=== PATIENT | female | born 1945 | race Caucasian/White ===

== ENCOUNTER 2016-08-17 09:27 | Inpatient (IN) ==
--- NOTE | 2016-08-16 21:26 | Discharge Summary ---
<Heavenly Marrufo - Last Filed: 08/17/16 13:53> - Discharge Diagnosis (1) Arthritis of knee, right Priority: Primary Status: Acute - Discharge Medications Home Medications: Aspirin Enteric Coated [Aspirin EC] 325 mg PO DAILY #21 tablet. 08/16/16 [Rx] OxyCODONE Immed Rel [Roxicodone 5 MG] 5 - 10 mg PO Q6HR PRN #40 tablet 08/16/16 [Rx] Acetaminophen [Tylenol] 650 mg PO DAILY 08/17/16 [History] Metformin [Glucophage] 500 mg PO DAILY 08/17/16 [History] Omeprazole 20 mg PO DAILY 08/17/16 [History] Allergies/Adverse Reactions: Allergies Penicillins [PCN] Allergy (Mild, Verified 08/17/16 10:53) Hives Primary care physician: Elyssa Downing CNP - Patient Status Disposition: Transfer Inpatient Rehab Fac Condition: Good - Discharge Instructions Follow Up With: Durga Murcia MD [Partnered Physician] - 09/15/16 8:50 am Heavenly Marrufo PAC [Physician Mercantile Reporter] - 08/27/16 9:45 am Elyssa Downing CNP [Primary Care Provider] - Additional Instructions: Discharge Instructions: Total Knee Replacement Please call [facility] ([phone]), your Primary Care Physician, or report to the Emergency Room if you have any of the following symptoms: Nausea, vomiting, fever greater that 101.5, swelling, chest pain, shortness of breath, increased pain/redness/drainage/odor for your incision site, numbness/ tingling, or any other concerning symptoms. ACTIVITY:Weight-bearing as tolerated. You may progress off support (cruthches or walker) as tolerated. MEDICATIONS: Upon discharge resume your home medications. Take all the medications as prescribed. Take a stool softener if taking narcotic pain medications. Stool softeners are only effective if you drink enough fluids. Drink 6-8 glass of water or fluids a day, unless this is not allowed for another health problem. Despite using stool softeners, if you haven't had a bowel movement in 3 days, please switch to a gentle laxative. Gentle laxatives are sold over the counter. You should have a bowel movement within 24 hours, if not call the office. You will be discharged from the hospital with a prescription for pain medication. You are encouraged to decrease the use of narcotic pain medication as tolerated. Should you require a refill, please call the office. [facility] prescribes narcotic pain medication for only 4-6 weeks after surgery. If you require pain medication beyond this time periord, you may be referred to your Primary Care Physician or to the Pain Clinic for further evaluation. Plan ahead for refills on pain medication as many narcotics either need to be picked up at the office or mailed. It is best to call 48-72 hours in advance of needing a prescription refill so you don't run out of medication. To help control the post-operative pain, you may take NSAIDs (Aleve,Advil, Motrin, ibuprofen, naprosyn) or Tylenol as prescribed on the bottle in addition to the pain medication. ANTICOAGULATION (blood thinners): Continue your Aspirin, Lovenox or Coumadin as prescribed to help prevent a blood clot in the leg or in the lungs. As long as your incision remains dry and you tolerate the NSAIDs (Aleve, Advil, Motrin, ibuprofen, naprosyn), it is OK to use the NSAIDS while you are taking your anticoagulation medication. Should your incision start to drain, stop the NSAID and contact our office. Common symptoms of blood clot in the legs include: localized pain, swelling, calf tenderness, redness or discoloration of the skin. Blood clot in the lung symptoms include: shortness of breath, rapid pulse, sweating, and chest pain that worsens with deep breathing, coughing up blood, lightheadedness, feelings of anxiety. If you experience any of these symptoms notify your physician immediately, go to the emergency room, or if having trouble breathing, call 911. WOUND CARE: Leave the dressing on for 7 days. You may change the dressing if it becomes saturated greater than 50%. You can shower but not a tub bath or submerge your incision in water. Wash your hands with antibacterial soap, rinse and dry prior to any wound care. If you have sid the visiting nurse or rehab facility can remove the stapes 10-14 days [address] surgery [address] steri- strips across the wound. Leave the steri-strips in place until they fall off on their won. You may let water from the shower run on top of the steri-stirips. If you do not have a visiting nurse or rehab facility, you will need to return to the office at 10-14 days for the sid to be removed. FOLLOW-UP: Please follow up with your surgeon in the orthopedic clinic in 4 weeks from the day of surgery. If you have sid that need to be removed, you will need to come back to the office in 10-14 days from the day of surgery. - Hospital Course Hospital course: Ms. Johnson is a 70 year old female - Time Spent with Patient Total time spent providing and/or coordinating discharge services: <Durga Murcia - Last Filed: 08/20/16 08:20> Date of Encounter: 08/20/16 Time of Encounter: 08:20 - Discharge Diagnosis (1) Arthritis of knee, right Priority: Primary Status: Acute Primary care physician: Elyssa Downing CNP - Patient Status Functional capacity at discharge: uses cane/walker Overall status at discharge: patient is progressing back to baseline - Hospital Course Hospital course: Ms. Johnson is a 70 year old female The patient had an uneventful postoperative course. They received antibiotics and physical therapy and were discharged in stable condition. There will follow -up in the office in 2 weeks. Aspirin DVT prophylaxis - Time Spent with Patient Total time spent providing and/or coordinating discharge services:
[2016-08-17] MEDS ORDERED: Clindamycin 900 MG/50 ML 900 MG/50 ML IV.SOLN IVPB ONE (09:46)
--- NOTE | 2016-08-17 09:58 | History & Physical Report ---
Date of Encounter: 08/17/16 Time of Encounter: 09:58 24 Hour HP Update - Instructions Instructions: If the History and Physical is less than 30 days old and was completed prior to A.M. admission and or procedure and has NOT been updated on calendar day of procedure please complete this update prior to performing procedure. - Update Patient reports changes in Medical Condition: No Changes in assessment/condition: No Changes in Medication: No Preop tests/diagnostics Reviewed: Yes Surgery Remains Indicated: Yes Consent for Planned Operative Procedure(s) Verified: Yes - Pre-Operative Checklist Preoperative Checklist Indicated: No Prophylactic Antibiotic Ordered: Yes Is VTE Prophylaxis Indicated?: Yes
[2016-08-17] MEDS ORDERED: Ringers Solution, Lactated 1,000 ML IVC SCH ×2 (10:00→12:15)
[2016-08-17] MEDS ORDERED: Acetaminophen 325 MG TABLET PO ONE (10:14)
--- NOTE | 2016-08-17 10:31 | Anesthesia Evaluation PreOp ---
Date of Encounter: 08/17/16 Time of Encounter: 10:29 - Past History Planned Operation: r tka Cardiac History: Denies any Significant Hx Pulmonary History: Former smoker (8 years ago) OUTDOOR FITNESS TRAINER History: Denies Any Significant HX Other Medical History: Renal (stones), Diabetes Type II, GERD (controlled) Anesthesia History: No Prior Anesthetic Complications, Past Anesthesia (elbow, l tka, hysterect, cholecyst) Alcohol Use: occasionally Drug use: none Medications and Allergies Aspirin Enteric Coated [Aspirin EC] 325 mg PO DAILY #21 tablet. 08/16/16 [Rx] OxyCODONE Immed Rel [Roxicodone 5 MG] 5 - 10 mg PO Q6HR PRN #40 tablet 08/16/16 [Rx] Allergies Penicillins [PCN] Allergy (Mild, Verified 08/17/16 09:46) Hives - Meds/Allergy Pre-op Review Medications Reviewed: Yes Allergies Reviewed: Yes Beta Blockers on Current Med List: No Anesthesia Results - Labs Laboratory Tests 08/03/16 08/03/16 08/03/16 12:53 12:53 12:53 Hgb Hct Plt Count PT 12.0 INR 1.1 APTT 32.3 Sodium 140 Potassium 4.0 Creatinine 0.73 Hemoglobin A1c 6.2 H 08/03/16 12:53 Hgb 13.7 Hct 43.0 Plt Count 305 PT INR APTT Sodium Potassium Creatinine Hemoglobin A1c - Imaging EKG: report reviewed (sr) Anesthesia Exam O2 Sat Height 1.6 m Height 1.6 m Height 1.6 m Weight 107.955 kg Weight 107.955 kg Weight 107.955 kg O2 Sat by Pulse Oximetry 95 O2 Sat by Pulse Oximetry 95 Vital Signs Temp Pulse Resp BP Pulse Ox 98.4 F 87 18 138/75 95 08/17/16 09:49 08/17/16 09:49 08/17/16 09:49 08/17/16 09:49 08/17/16 09:49 Blood glucose: 121 Height: 1.6 Weight: 108 NPO (# of Hours): >8 - HEENT Pupil (Motor): Pupils equal, EOMI Mallampati: I Teeth: Poor dentition Oral Opening: Greater than 3 - OUTDOOR FITNESS TRAINER LOC: Oriented OUTDOOR FITNESS TRAINER Motor: Normal RUE, Normal LUE, Normal RLE, Normal LLE, Normal Face OUTDOOR FITNESS TRAINER Sensory: Normal: RUE, LUE, RLE, LLE, Face - Cardiac Rhythm: Regular Murmur: None - Pulmonary Breath Sounds: bilateral Clear Respiratory Effort: Symmetrical Anesthesia Assess/Plan ASA Score: 3 (dm, mo) Modified [place] Scale for Level of Consciousness: Cooperative, oriented, and tranquil Anesthetic Plan: General, Regional Monitoring Plan: Standard Monitors Recovery Plan: PACU
[2016-08-17] MEDS ORDERED: *HR* Magnesium Sulfate 2 GM/50 ML PIGGYBACK IVPB ONE (10:39)
[2016-08-17] MEDS ORDERED: CloNIDine Patch 0.1 MG PATCH (WEEKLY) TD SCH (10:45)
[2016-08-17] MEDS ORDERED: Lidocaine -MPF 2% 2 ML VIAL ONE (10:53)
[2016-08-17] MEDS ORDERED: *HR* FentaNYL (PF) 100 MCG/2 ML VIAL ONE (10:53)
[2016-08-17] MEDS ORDERED: *HR* Midazolam HCl 2 MG/2 ML VIAL ONE (10:54)
[2016-08-17] MEDS ORDERED: *HR* Propofol 200 MG/20 ML VIAL IVP ONE (10:54)
[2016-08-17] MEDS ORDERED: Dexamethasone 4 MG/ML VIAL ONE (10:55)
[2016-08-17] MEDS ORDERED: Tetracaine/PF 20 MG/2 ML AMPUL SPINA ONE (11:26)
[2016-08-17] MEDS ORDERED: Bupivacaine/EPI 1:200k 0.25%PF 30 ML VIAL ONE (11:26)
[2016-08-17] MEDS ORDERED: *HR* Promethazine 25 MG/ML VIAL IVP PRN (12:02)
--- NOTE | 2016-08-17 12:07 | Anesthesia Procedures ---
Date of Encounter: 08/17/16 Time of Encounter: 11:40 Procedures: Anesthesia - Nerve Block Procedure Date: 08/17/16 Time: 11:40 Allergies/Adv Reactions: PCN Pre-op Diagnosis: right knee arthritis Surgical Procedure: right total knee arthroplasty Checklist: Correct Patient Identifier, Correct procedure, History checked Correct side: Right Blood Thinner: No Monitor Applied: EKG, BP, Pulse Oximetry Supplemental Oxygen via Nasal Cannula (L/min): 2 Sedation: Versed (mg): 2 Sedation: Fentanyl (mcg): 100 Indication: Post Op Analgesia Pre-op Neuro Deficits: No Block Type: Femoral Catheter placed: No Sterile Technique: Yes Ultrasound used: Yes Anatomy identified: Yes Visual spread of Local: Yes Neuro Stimulation: Yes Nerve Stimulator Range: 0.2 - 0.4 mA Blood on Needle Aspiration: No Smooth Injection of Local: Yes Pain with Injection of Local: No Prep: Chlorhexadine Needle: 22 x 50 mm Stimuplex Local: Tetracaine (20mg), Other (marcaine 0.5% 20 Marcaine 0.25% with epi 20ml decadron 4mg ) Volume (cc): 40 Number of Attempts: 1 Complications: None/effective block Vitals: Vital Signs Temperature 98.4 F 08/17/16 09:49 Pulse Rate 87 08/17/16 09:49 Respiratory Rate 18 08/17/16 09:49 Blood Pressure 138/75 08/17/16 09:49 O2 Sat by Pulse Oximetry 95 08/17/16 09:49 Temperature 98.4 F 08/17/16 09:55 Pulse Rate 90 08/17/16 11:42 Respiratory Rate 18 08/17/16 09:55 Blood Pressure 147/85 08/17/16 11:42 O2 Sat by Pulse Oximetry 96 08/17/16 11:42 Comments: Block ordered per dr morales for postoperative pain relief. VSS throughout
[2016-08-17] MEDS ORDERED: *HR* Morphine 10 MG/ML VIAL ONE (12:17)
[2016-08-17] MEDS ORDERED: Ketorolac 30 MG/ML VIAL ONE (12:19)
[2016-08-17] MEDS ORDERED: Ondansetron 4 MG/2 ML VIAL ONE (12:23)
--- NOTE | 2016-08-17 12:30 | Orthopedic Operative Note ---
Date of procedure: 08/17/16 Pre-op diagnosis: Right knee arthritis Post-op diagnosis: same Procedure: Procedure: Right Total knee replacement Estimated blood loss: 200 cc Hardware: Arthrex Femur: 5 Tibia: 4 PS insert: 14 Patella: 34 Exam Under anesthesia: Full flexion full extension no instability Procedural Notes: Grade 4 arthritic changes medial compartment grade 3 arthritic changes patellofemoral joint. Operative procedure: The patient was brought to the operating room and placed on the operating room table. After general anesthesia was administered the operative knee was examined. Findings were noted in the exam under anesthesia. The operative extremity was prepped and draped in sterile surgical fashion. The patient received IV antibiotics prior to skin incision. A standard midline incision was made centered over the patella. The incision was made through the skin and subcutaneous tissue. A medial parapatellar tendon approach was performed. Care was taken to preserve tissue along the medial aspect of the patella. And to protect the patella tendon. The deep MCL was released off the medial tibia. The infra patella fat pad was excised. Knee was brought into flexion. Patient noted to have Grade 4 arthritic changes medial compartment grade 3 arthritic changes patellofemoral joint. The entry hole was made for the intramedullary femoral guide. The guide was seated in 6 degrees of valgus. Anterior cut was made followed by the distal cut. The ACL the PCL the medial and the lateral menisci were excised. The tibia was subluxed forward. The entry hole was made for the intramedullary tibial guide. Guide was seated to resect 2 mm off the more abnormal side. The knee was brought into flexion the distal femur was sized to a 5. The femoral guide was seated, the anterior cut was made followed by the posterior condylar cut, followed by the chamfer cuts. The finishing guide was seated the box cut was made and the lug holes were drilled. The tibia was sized to a 4, the tibial tray was seated and prepared with the large drill followed by the fin cutter. Trial reduction revealed full extension no varus valgus instability with the appropriate 14 PS Nely. The patella was everted and cut was made at the level of the insertion of the quadriceps and patella tendon. The patella was sized to a 34 the guide was seated and the lug holes are drilled. Trial reduction revealed excellent patella tracking. All trial components were removed all bony surfaces were irrigated. The tibia was cemented first followed by the femur. The 14 PS Nely was seated and the knee was brought into full extension. The patella was cemented and held in place with the patellar holding clamp. After the cement had hardened, the knee sat for 2 minutes with a Betadine saline solution. The knee was then irrigated out with 2 L of pulse irrigation. The extensor mechanism was closed with #2 FiberWire suture and #2 PDS suture. The subcutaneous tissue was then irrigated and closed deep with #1 PDS suture superficially with 0 PDS suture and skin was closed with skin sid and Dermabond. The patient was then placed in a sterile dressing and a postoperative brace extubated and transferred to recovery room in stable condition. Anesthesia: JZALYN Surgeon: Durga Murcia Delivery Technician: Heavenly Marrufo Condition: stable Disposition: PACU
[2016-08-17] MEDS: *HR* HYDROmorphone (PF) 1 MG/ML SYRINGE IVP PRN ×3 (13:10→13:40)
--- NOTE | 2016-08-17 13:46 | Anesthesia Evaluation Post Op ---
Date of Encounter: 08/17/16 Time of Encounter: 13:46 - Vital Signs Vital Signs: Vital Signs/O2 Sat/Glucose, Most Current Temp Pulse Resp BP Pulse Ox 08/17/16 13:37 63 16 99/64 93 L 08/17/16 13:27 98.3 F 62 14 100/55 91 L 08/17/16 13:17 63 14 101/57 91 L 08/17/16 13:07 61 14 109/56 90 L 08/17/16 12:57 99.0 F 78 14 104/56 98 08/17/16 11:42 90 147/85 96 08/17/16 09:55 98.4 F 87 18 138/75 95 08/17/16 09:49 98.4 F 87 18 138/75 95 - Lungs Lungs: Clear Ascult./Percussion - Airway Airway: Non-obstructed - Cardiovascular Regular Rate - Mental Status Mental Status: Alert & Oriented, Answers Appropriately - Pain Pain Scale: 3 - Nausea Vomiting Nausea Vomiting: Not Present - Hydration Hydration: Ice chips - Discharge PostOp Status: Transfer Patient to floor
[2016-08-17 14:06] LABS: Hematocrit 36.6 % (35.3-44.9); Hemoglobin 11.5 g/dL (11.5-15.4)
[2016-08-17] MEDS ORDERED: MOM Conc 10 ML UD.LIQ PO PRN (14:17)
[2016-08-17] MEDS ORDERED: Albuterol Neb 1.25 MG/3 ML VIAL IH ONE (14:17)
[2016-08-17] MEDS ORDERED: Sennosides 8.6 MG TABLET PO PRN (14:17)
[2016-08-17] MEDS ORDERED: Ondansetron 4 MG/2 ML VIAL IVP PRN (14:17)
[2016-08-17] MEDS ORDERED: Temazepam 15 MG CAPSULE PO PRN (14:17)
[2016-08-17] MEDS ORDERED: Naloxone 0.4 MG/ML INJ IVP PRN (14:17)
[2016-08-17] MEDS: Ringers Solution, Lactated 1,000 ML IVC SCH (15:07)
[2016-08-17] MEDS ORDERED: *HR* Enoxaparin 30 MG/0.3 ML SYRINGE SQ SCH (18:00)
[2016-08-17] MEDS: *HR* Enoxaparin 30 MG/0.3 ML SYRINGE SQ SCH (18:37)
[2016-08-17] MEDS: Clindamycin 900 MG/50 ML 900 MG/50 ML IV.SOLN IVPB SCH (19:38)
[2016-08-18] MEDS: *HR* OxyCODONE Immed Rel 5 MG TABLET PO PRN ×4 (01:03→21:04)
[2016-08-18] MEDS: Ringers Solution, Lactated 1,000 ML IVC SCH (02:46)
[2016-08-18] MEDS: Clindamycin 900 MG/50 ML 900 MG/50 ML IV.SOLN IVPB SCH (03:18)
[2016-08-18] MEDS: *HR* Enoxaparin 30 MG/0.3 ML SYRINGE SQ SCH ×2 (05:01→17:04)
[2016-08-18 06:12] LABS: Hematocrit 37.5 % (35.3-44.9); Hemoglobin 11.8 g/dL (11.5-15.4)
[2016-08-18 06:33] LABS: BUN/Creatinine Ratio 13 (6-26); Blood Urea Nitrogen 10 mg/dL (7-20); Carbon Dioxide 20 mEq/L (19-29); Chloride 107 mEq/L (98-109); Glucose 136 mg/dL (70-99); Osmolality,Calculated 287 (280-300); Potassium 4.1 mEq/L (3.5-4.5); Sodium 138 mEq/L (136-145); eGFR For African Americans > 60 (> 60); eGFR For Non-African Americans > 60 (> 60)
--- NOTE | 2016-08-18 06:53 | Orthopedics Progress Note ---
Date of Encounter: 08/18/16 Time of Encounter: 06:53 - Assessment and Plan (1) Arthritis of knee, right Current Visit: Yes Status: Acute Subjective Interval history: Patient was seen this morning doing well without complaints. Afebrile vital signs stable. Operative extremity: Neurovascularly intact Dressing clean dry and intact Calves nontender Assessment and plan: Continue with postoperative care Hemoglobin 37.5 Objective Vital signs: Vital Signs Temp Pulse Resp BP Pulse Ox 08/18/16 06:46 97.7 F 81 18 107/65 93 L 08/18/16 04:00 97.5 F L 77 16 122/82 98 08/18/16 00:00 97.6 F 75 16 121/85 98 08/17/16 20:00 97.7 F 77 17 128/80 98 08/17/16 17:07 97.0 F L 65 16 109/63 93 L 08/17/16 15:54 97.7 F 68 16 109/66 95 08/17/16 15:14 18 94 L 08/17/16 14:57 97.0 F L 71 16 117/70 96 08/17/16 14:30 97.7 F 64 14 116/64 96 08/17/16 14:14 97.7 F 65 16 109/63 95 08/17/16 13:57 98.2 F 70 16 116/65 92 L 08/17/16 13:47 60 16 109/60 91 L 08/17/16 13:37 63 16 99/64 93 L 08/17/16 13:27 98.3 F 62 14 100/55 91 L 08/17/16 13:17 63 14 101/57 91 L 08/17/16 13:07 61 14 109/56 90 L 08/17/16 12:57 99.0 F 78 14 104/56 98 08/17/16 11:42 90 147/85 96 08/17/16 09:55 98.4 F 87 18 138/75 95 08/17/16 09:49 98.4 F 87 18 138/75 95 Intake and Output 08/17/16 08/17/16 08/18/16 15:59 23:59 07:59 Intake Total 1400 / 1400 370 / 370 250 / 250 Output Total 200 / 200 1100 / 1100 Balance 1200 / 1200 370 / 370 -850 / -850 Intake: IV Fluids 1400 / 1400 50 / 50 50 / 50 Lactated Ringers 1,000 ML 1400 / 1400 @ 25 mls/hr IVC .Q24H LARR[facility] Rx#:[id number] Cleocin 900 MG/50 ML 900 50 / 50 50 / 50 mg In 50 ml @ 50 mls/hr IVPB Q8H LARRY Rx#: [id number] Oral 320 / 320 200 / 200 Output: Urine 1100 / 1100 Estimated Blood Loss 200 / 200 Other: Meal Dinner Percent of Meal Consumed 50% # Voids 1 1 Weight 107.955 kg Blood Glucose* 136 - Labs CBC & BMP: 08/18/16 05:31 08/18/16 05:31 Labs: Abnormal lab results Glucose 136 mg/dL (70-99) H 08/18/16 05:31 POC Glucose 136 (58-89) H 08/17/16 13:06 - VTE Documentation of Mechanical Device: Venous foot pump, device Consult Discharge Plan - Plan Referrals: Elyssa Downing, COMPENSATION CONSULTANT [Primary Care Provider] -
[2016-08-18] MEDS: *HR* Metformin 500 MG TABLET PO SCH (08:13)
[2016-08-18] MEDS: Acetaminophen 325 MG TABLET PO PRN (10:02)
[2016-08-18] MEDS: *HR* HYDROmorphone (PF) 1 MG/ML SYRINGE IVP PRN (20:14)
[2016-08-19] MEDS: *HR* HYDROmorphone (PF) 1 MG/ML SYRINGE IVP PRN ×5 (00:46→19:10)
[2016-08-19] MEDS: *HR* OxyCODONE Immed Rel 5 MG TABLET PO PRN ×5 (04:39→22:49)
[2016-08-19] MEDS: *HR* Enoxaparin 30 MG/0.3 ML SYRINGE SQ SCH ×2 (04:39→16:15)
[2016-08-19 06:59] LABS: Hemoglobin 10.5 g/dL (11.5-15.4)
[2016-08-19 07:14] LABS: BUN/Creatinine Ratio 19 (6-26); Blood Urea Nitrogen 15 mg/dL (7-20); Calcium 8.7 mg/dL (8.6-10.8); Carbon Dioxide 25 mEq/L (19-29); Chloride 106 mEq/L (98-109); Glucose 142 mg/dL (70-99); Osmolality,Calculated 287 (280-300); Potassium 4.1 mEq/L (3.5-4.5); Sodium 137 mEq/L (136-145); eGFR For African Americans > 60 (> 60); eGFR For Non-African Americans > 60 (> 60)
[2016-08-19] MEDS: *HR* Metformin 500 MG TABLET PO SCH (07:27)
--- NOTE | 2016-08-19 09:15 | Orthopedics Progress Note ---
Date of Encounter: 08/19/16 Time of Encounter: 06:00 - Assessment and Plan (1) Arthritis of knee, right Current Visit: Yes Status: Acute Subjective Interval history: Patient was seen this morning doing well without complaints. Afebrile vital signs stable. Operative extremity: Neurovascularly intact Dressing clean dry and intact Calves nontender Assessment and plan: Continue with postoperative care Hemoglobin 34 Objective Vital signs: Vital Signs Temp Pulse Resp BP Pulse Ox 08/19/16 07:10 98.1 F 92 16 120/63 92 L 08/19/16 01:19 98.6 F 87 16 112/68 92 L 08/18/16 19:22 99.8 F H 90 17 142/76 98 08/18/16 15:18 98.1 F 93 18 111/45 97 08/18/16 11:10 98.0 F 87 18 123/58 95 Intake and Output 08/18/16 08/19/16 08/19/16 23:59 07:59 15:59 Other: Blood Glucose* 130 - Labs CBC & BMP: 08/19/16 06:35 08/19/16 06:35 Labs: Abnormal lab results Hgb 10.5 g/dL (11.5-15.4) L 08/19/16 06:35 Hct 34.0 % (35.3-44.9) L 08/19/16 06:35 Glucose 142 mg/dL (70-99) H 08/19/16 06:35 POC Glucose 136 (58-89) H 08/17/16 13:06 - VTE Documentation of Mechanical Device: Venous foot pump, device Consult Discharge Plan - Plan Referrals: Elyssa Downing, SUPERVISOR [employer]ING [Primary Care Provider] -
[2016-08-19] MEDS: Acetaminophen 325 MG TABLET PO PRN (09:50)
[2016-08-20] MEDS: *HR* HYDROmorphone (PF) 1 MG/ML SYRINGE IVP PRN ×2 (00:18→04:47)
[2016-08-20] MEDS: *HR* OxyCODONE Immed Rel 5 MG TABLET PO PRN ×3 (02:51→12:37)
[2016-08-20] MEDS: *HR* Enoxaparin 30 MG/0.3 ML SYRINGE SQ SCH (04:47)
[2016-08-20] MEDS: *HR* Metformin 500 MG TABLET PO SCH (07:53)
--- NOTE | 2016-08-20 08:21 | Orthopedics Progress Note ---
Date of Encounter: 08/20/16 Time of Encounter: 08:21 - Assessment and Plan (1) Arthritis of knee, right Current Visit: Yes Status: Acute Subjective Interval history: Patient was seen this morning doing well without complaints. Afebrile vital signs stable. Operative extremity: Neurovascularly intact Dressing clean dry and intact Calves nontender Assessment and plan: Continue with postoperative care Discharged today Objective Vital signs: Vital Signs Temp Pulse Resp BP Pulse Ox 08/20/16 07:30 98.1 F 17 119/75 94 L 08/20/16 05:22 98.4 F 101 16 132/76 94 L 08/20/16 00:46 99.2 F 100 17 142/80 93 L 08/19/16 20:00 98.7 F 99 16 152/81 96 08/19/16 15:00 98.1 F 91 16 142/78 96 08/19/16 11:00 98.2 F 88 16 105/63 90 L Intake and Output 08/19/16 08/20/16 08/20/16 23:59 07:59 15:59 Intake Total 340 / 340 120 / 120 Output Total 200 / 200 50 / 50 Balance 140 / 140 70 / 70 Intake: Oral 340 / 340 120 / 120 Output: Urine 200 / 200 50 / 50 Other: Meal Dinner Percent of Meal Consumed 80% # Voids 1 Blood Glucose* 126 125 - Labs CBC & BMP: 08/19/16 06:35 08/19/16 06:35 Labs: Abnormal lab results Hgb 10.5 g/dL (11.5-15.4) L 08/19/16 06:35 Hct 34.0 % (35.3-44.9) L 08/19/16 06:35 Glucose 142 mg/dL (70-99) H 08/19/16 06:35 POC Glucose 126 (58-89) H 08/19/16 19:55 - VTE Documentation of Mechanical Device: Venous foot pump, device Consult Discharge Plan - Plan Additional Instructions: Discharge Instructions: Total Knee Replacement Please call [facility] ([phone]), your Primary Care Physician, or report to the Emergency Room if you have any of the following symptoms: Nausea, vomiting, fever greater that 101.5, swelling, chest pain, shortness of breath, increased pain/redness/drainage/odor for your incision site, numbness/ tingling, or any other concerning symptoms. ACTIVITY:Weight-bearing as tolerated. You may progress off support (cruthches or walker) as tolerated. MEDICATIONS: Upon discharge resume your home medications. Take all the medications as prescribed. Take a stool softener if taking narcotic pain medications. Stool softeners are only effective if you drink enough fluids. Drink 6-8 glass of water or fluids a day, unless this is not allowed for another health problem. Despite using stool softeners, if you haven't had a bowel movement in 3 days, please switch to a gentle laxative. Gentle laxatives are sold over the counter. You should have a bowel movement within 24 hours, if not call the office. You will be discharged from the hospital with a prescription for pain medication. You are encouraged to decrease the use of narcotic pain medication as tolerated. Should you require a refill, please call the office. [facility] prescribes narcotic pain medication for only 4-6 weeks after surgery. If you require pain medication beyond this time periord, you may be referred to your Primary Care Physician or to the Pain Clinic for further evaluation. Plan ahead for refills on pain medication as many narcotics either need to be picked up at the office or mailed. It is best to call 48-72 hours in advance of needing a prescription refill so you don't run out of medication. To help control the post-operative pain, you may take NSAIDs (Aleve,Advil, Motrin, ibuprofen, naprosyn) or Tylenol as prescribed on the bottle in addition to the pain medication. ANTICOAGULATION (blood thinners): Continue your Aspirin, Lovenox or Coumadin as prescribed to help prevent a blood clot in the leg or in the lungs. As long as your incision remains dry and you tolerate the NSAIDs (Aleve, Advil, Motrin, ibuprofen, naprosyn), it is OK to use the NSAIDS while you are taking your anticoagulation medication. Should your incision start to drain, stop the NSAID and contact our office. Common symptoms of blood clot in the legs include: localized pain, swelling, calf tenderness, redness or discoloration of the skin. Blood clot in the lung symptoms include: shortness of breath, rapid pulse, sweating, and chest pain that worsens with deep breathing, coughing up blood, lightheadedness, feelings of anxiety. If you experience any of these symptoms notify your physician immediately, go to the emergency room, or if having trouble breathing, call 911. WOUND CARE: Leave the dressing on for 7 days. You may change the dressing if it becomes saturated greater than 50%. You can shower but not a tub bath or submerge your incision in water. Wash your hands with antibacterial soap, rinse and dry prior to any wound care. If you have sid the visiting nurse or rehab facility can remove the stapes 10-14 days [address] surgery [address] steri- strips across the wound. Leave the steri-strips in place until they fall off on their won. You may let water from the shower run on top of the steri-stirips. If you do not have a visiting nurse or rehab facility, you will need to return to the office at 10-14 days for the sid to be removed. FOLLOW-UP: Please follow up with your surgeon in the orthopedic clinic in 4 weeks from the day of surgery. If you have sid that need to be removed, you will need to come back to the office in 10-14 days from the day of surgery. Referrals: Durga Murcia MD [Partnered Physician] - 09/15/16 8:50 am Heavenly Marrufo PAC [Physician Alternative Energy Technician] - 08/27/16 9:45 am Elyssa Downing CNP [Primary Care Provider] -
[2016-08-20 11:12] VITALS: BP 108/70
[2016-08-20] MEDS ORDERED: FLU VACC QS2016-17 36MOS UP/PF 0.5 ML SYRINGE IM ONE (13:39)
== END 2016-08-20 14:20 | DRG 470 ==
LOC: SAMDAY 09:27 → 3NENU 14:08
PROVIDERS: ADMIT Orthopaedic Surgery; ATTEND Orthopaedic Surgery

== ENCOUNTER 2017-12-03 07:33 | Observation (INO) ==
[2017-12-03] MEDS ORDERED: Aspirin 81 MG TAB.CHEW PO ONE (07:55)
--- NOTE | 2017-12-03 08:06 | Emergency Department Note ---
Disposition Clinical Impression: ACS (acute coronary syndrome) Disposition: Admitted As Inpatient Condition: Fair Referrals: Elyssa Downing CNP [Primary Care Provider] - Time of Disposition: 10:52 Chest Pain HPI - General Stated Complaint: CP Time Seen by Provider: 12/03/17 07:38 Source: patient Mode of arrival: ambulatory Limitations: no limitations Vital Signs Reviewed: Yes Nursing Notes Reviewed: Yes - History of Present Illness HPI Narrative: Alert and oriented nontoxic-appearing 72-year-old female presents for evaluation of substernal chest pain that has been "going on for quite some time ". She describes an intermittent dull ache that is located to the substernal and parasternal regions. This pain is made worsened with palpation, inspiration , and exertion. It is somewhat alleviated by rest. She complains of some associated nausea but denies any vomiting. She does complain of a productive cough however denies any hemoptysis. She states that this past Wednesday, she experienced a brief episode of a sensation of palpitations and that her pain has worsened over the past 3 days. Pt complaint: chest pain Onset (ago): unknown Duration: intermittent Onset: during rest Pain Location: substernal Severity: moderate Severity scale (1-10): 5 Quality: tightness Improves with: rest Worsens with: exertion, inspiration Associated symptoms: Reports: nausea, cough. Denies: vomiting, diaphoresis, dyspnea, palpitations, fever, leg swelling Treatments prior to arrival chest pain: none - Related Data Home Medications Medication Instructions Recorded Confirmed Acetaminophen [Tylenol] 650 mg PO DAILY 08/17/16 12/03/17 metFORMIN [Glucophage] 500 mg PO DAILY 08/17/16 12/03/17 Atenolol [Tenormin] 25 mg PO DAILY 12/03/17 12/03/17 Cholecalciferol (Vitamin D3) 5,000 unit PO DAILY 12/03/17 12/03/17 [Vitamin D] Omeprazole [PriLOSEC] 20 mg PO DAILY 12/03/17 12/03/17 Allergies Allergy/AdvReac Type Severity Reaction Status Date / Time Penicillins [PCN] Allergy Mild Hives Verified 12/03/17 08:11 All systems ED: reviewed and negative except as stated. Constitutional: Denies: fever, chills, weakness, weight change Eyes: Denies: eye pain, eye discharge, vision change ENT ED: Denies: ear pain, throat pain, dental pain, hearing loss, epistaxis, congestion, dysphagia Cardiovascular: Reports: as per HPI, chest pain, palpitations. Denies: dyspnea on exertion, edema, syncope Respiratory: Reports: as per HPI, cough, sputum production (Clear). Denies: dyspnea, wheezes, hemoptysis, stridor Gastrointestinal: Reports: as per HPI, nausea. Denies: abdominal pain, vomiting , diarrhea, constipation, hematemesis, melena, hematochezia Genitourinary: Denies: dysuria, frequency, hematuria, discharge Musculoskeletal: Denies: back pain, neck pain, arthralgia, myalgia Integumentary: Denies: rash, abrasion, lesions Neurological: Denies: headache, weakness, numbness, paresthesias, confusion, abnormal gait, vertigo Psychiatric: Denies: anxiety, depression, suicidal thoughts, homicidal thoughts , auditory hallucinations, visual hallucinations Endocrine: Denies: fatigue Hematological/Lymphatic: Denies: easy bleeding, easy bruising Allergic/Immunologic: Denies: facial swelling, urticaria Chest Pain PMH - Past Medical History Medical history: Reports: diabetes Surgical history: Reports: cholecystectomy, hysterectomy, knee replacement Psychiatric history: Reports: no psych history - Social History Smoking Status: Former smoker Alcohol use: Reports: occasionally Drug use: Reports: none Physical Exam - General Limitations: no limitations General appearance: alert, in no apparent distress - Head Head exam: atraumatic, normocephalic, normal inspection - Eye Eye exam: Present: normal appearance, PERRL, EOMI. Absent: nystagmus - ENT ENT exam: mucous membranes moist - Neck Neck exam: Present: normal inspection, full ROM, trachea midline - Chest Chest inspection: Present: normal inspection, symmetric chest wall rise, tenderness (Tenderness with palpation of the sternal borders, particularly the left sternal margin) - Respiratory Respiratory exam: Present: normal lung sounds bilaterally. Absent: respiratory distress, wheezes, stridor, accessory muscle use, prolonged expiratory phase - Cardiovascular Cardiovascular exam: Present: regular rate, normal rhythm, normal heart sounds - Abdominal Exam Abdominal exam: Present: soft, Non-Tender, normal bowel sounds. Absent: mass - Extremities Exam Extremities exam: Present: normal inspection, full ROM. Absent: tenderness, pedal edema - Neurological Exam Neurological exam: Present: alert, oriented X3 - Psychiatric Psychiatric exam: Present: normal affect, normal mood - Skin Skin exam: Present: warm, dry, intact, normal color. Absent: rash Course Course Narrative: 1050: I spoke with Dr. Marte of the Hospital services accepted the patient for admission to the hospitalist care for further evaluation and treatment. - Reevaluation(s) Reevaluation #1: The patient states significant improvement in pain after the administration of 3 sublingual nitroglycerin tablets. She now rates her pain a 1 out of 10 on a 10 point scale. She is agreeable to admission to the hospital service for further evaluation of her chest pain. I discussed this patient's case with Dr. Tinsley. Dr. Tinsley has had a [id number] evaluation with the patient and agrees with this plan. Time: 09:36 Vital Signs Temperature 98.3 F 12/03/17 07:45 Pulse Rate 81 12/03/17 07:45 Respiratory Rate 20 12/03/17 07:45 Blood Pressure 159/77 12/03/17 07:45 O2 Sat by Pulse Oximetry 96 12/03/17 07:45 Temperature 98.3 F 12/03/17 07:45 Pulse Rate 79 12/03/17 10:30 Respiratory Rate 20 12/03/17 10:30 Blood Pressure 139/79 12/03/17 10:30 O2 Sat by Pulse Oximetry 98 12/03/17 10:30 Oxygen Delivery Oxygen Delivery Room Air Chest Pain - Medical Records Medical records reviewed: Yes I reviewed the patient's medical records. - Lab Data Lab results reviewed: Yes I reviewed the patient's lab results. Lab results narrative: Laboratory Last Values WBC 9.8 K/mcL (4.3-11.1) 12/03/17 08:40 RBC 4.92 M/mcL (3.82-4.97) 12/03/17 08:40 Hgb 13.8 g/dL (11.5-15.4) 12/03/17 08:40 Hct 43.2 % (35.3-44.9) 12/03/17 08:40 MCV 87.8 fL (83.0-100.0) 12/03/17 08:40 MCH 28.0 pg (28.0-33.3) 12/03/17 08:40 MCHC 31.9 g/dL (31.6-35.5) 12/03/17 08:40 RDW 14.4 % (11.5-14.5) 12/03/17 08:40 Plt Count 302 K/mcL (140-400) 12/03/17 08:40 MPV 9.3 fL (9.4-12.4) L 12/03/17 08:40 Immature Gran % 0.5 % (0-4) 12/03/17 08:40 Seg Neutrophils % 66.9 % 12/03/17 08:40 Lymphocytes % 22.9 % 12/03/17 08:40 Monocytes % 6.4 % 12/03/17 08:40 Eosinophils % 2.7 % 12/03/17 08:40 Basophils % 0.6 % 12/03/17 08:40 Neutrophils # 6.5 K/mcL (1.6-8.9) 12/03/17 08:40 Lymphocytes # 2.2 K/mcL (0.6-4.6) 12/03/17 08:40 Monocytes # 0.6 K/mcL (0.0-1.3) 12/03/17 08:40 Eosinophils # 0.3 K/mcL (0.0-0.6) 12/03/17 08:40 Basophils # 0.1 K/mcL (0.0-0.2) 12/03/17 08:40 PT 12.1 Seconds (9.4-12.1) 12/03/17 08:40 INR 1.1 12/03/17 08:40 APTT 29.3 Seconds (26.0-36.0) 12/03/17 08:40 D-Dimer 318 ng/mLFEU (0-500) 12/03/17 08:40 Sodium 137 mEq/L (136-145) 12/03/17 08:40 Potassium 3.6 mEq/L (3.5-5.1) 12/03/17 08:40 Chloride 106 mEq/L (98-107) 12/03/17 08:40 Carbon Dioxide 21 mEq/L (23-29) L 12/03/17 08:40 BUN 18 mg/dL (8-23) 12/03/17 08:40 Creatinine 0.68 mg/dL (0.60-1.20) 12/03/17 08:40 Est GFR ( Amer) > 60 (> 60) 12/03/17 08:40 Est GFR (Non-Af Amer) > 60 (> 60) 12/03/17 08:40 BUN/Creatinine Ratio 26 (6-26) 12/03/17 08:40 Glucose 132 mg/dL (70-105) H 12/03/17 08:40 Calculated Osmolality 288 (280-300) 12/03/17 08:40 Calcium 9.4 mg/dL (8.6-10.3) 12/03/17 08:40 Troponin I < 0.03 ng/mL (< 0.04) 12/03/17 08:40 B-Natriuretic Peptide 56 pg/mL (Less than 100) 12/03/17 08:40 Result diagrams: 12/03/17 08:40 12/03/17 08:40 Lab Results 12/03/17 12/03/17 12/03/17 Range/Units 08:40 08:40 08:40 WBC 9.8 (4.3-11.1) K/mcL RBC 4.92 (3.82-4.97) M/mcL Hgb 13.8 (11.5-15.4) g/dL Hct 43.2 (35.3-44.9) % MCV 87.8 (83.0-100.0) fL MCH 28.0 (28.0-33.3) pg MCHC 31.9 (31.6-35.5) g/dL RDW 14.4 (11.5-14.5) % Plt Count 302 (140-400) K/mcL MPV 9.3 L (9.4-12.4) fL Immature Gran % 0.5 (0-4) % Seg Neutrophils % 66.9 % Lymphocytes % 22.9 % Monocytes % 6.4 % Eosinophils % 2.7 % Basophils % 0.6 % Neutrophils # 6.5 (1.6-8.9) K/mcL Lymphocytes # 2.2 (0.6-4.6) K/mcL Monocytes # 0.6 (0.0-1.3) K/mcL Eosinophils # 0.3 (0.0-0.6) K/mcL Basophils # 0.1 (0.0-0.2) K/mcL PT 12.1 (9.4-12.1) Seconds INR 1.1 APTT 29.3 (26.0-36.0) Seconds D-Dimer 318 (0-500) ng/mLFEU Sodium (136-145) mEq/L Potassium (3.5-5.1) mEq/L Chloride (98-107) mEq/L Carbon Dioxide (23-29) mEq/L BUN (8-23) mg/dL Creatinine (0.60-1.20) mg/dL Est GFR ( Amer) (> 60) Est GFR (Non-Af Amer) (> 60) BUN/Creatinine Ratio (6-26) Glucose (70-105) mg/dL Calculated Osmolality (280-300) Calcium (8.6-10.3) mg/dL Troponin I (< 0.04) ng/mL B-Natriuretic Peptide 56 (Less than 100) pg/mL 12/03/17 Range/Units 08:40 WBC (4.3-11.1) K/mcL RBC (3.82-4.97) M/mcL Hgb (11.5-15.4) g/dL Hct (35.3-44.9) % MCV (83.0-100.0) fL MCH (28.0-33.3) pg MCHC (31.6-35.5) g/dL RDW (11.5-14.5) % Plt Count (140-400) K/mcL MPV (9.4-12.4) fL Immature Gran % (0-4) % Seg Neutrophils % % Lymphocytes % % Monocytes % % Eosinophils % % Basophils % % Neutrophils # (1.6-8.9) K/mcL Lymphocytes # (0.6-4.6) K/mcL Monocytes # (0.0-1.3) K/mcL Eosinophils # (0.0-0.6) K/mcL Basophils # (0.0-0.2) K/mcL PT (9.4-12.1) Seconds INR APTT (26.0-36.0) Seconds D-Dimer (0-500) ng/mLFEU Sodium 137 (136-145) mEq/L Potassium 3.6 (3.5-5.1) mEq/L Chloride 106 (98-107) mEq/L Carbon Dioxide 21 L (23-29) mEq/L BUN 18 (8-23) mg/dL Creatinine 0.68 (0.60-1.20) mg/dL Est GFR ( Amer) > 60 (> 60) Est GFR (Non-Af Amer) > 60 (> 60) BUN/Creatinine Ratio 26 (6-26) Glucose 132 H (70-105) mg/dL Calculated Osmolality 288 (280-300) Calcium 9.4 (8.6-10.3) mg/dL Troponin I < 0.03 (< 0.04) ng/mL B-Natriuretic Peptide (Less than 100) pg/mL - Radiology Data Radiology results reviewed: Yes I reviewed the patient's radiology results. - EKG Data EKG attestation: Yes I reviewed and interpreted this EKG. EKG results narrative: EKG reviewed by Dr. Tinsley as well. EKG shows a sinus rhythm at a rate of 85 bpm. [place] interval 165, QT/QTc interval 362/405, QRS duration 86, no ectopy noted. No STEMI. Slight ST depression noted in leads V5 and V6 when compared to a previous EKG dated from 08/03/16.
[2017-12-03 08:50] LABS: Basophils # 0.1 K/mcL (0.0-0.2); Basophils % 0.6 %; Eosinophils # 0.3 K/mcL (0.0-0.6); Eosinophils % 2.7 %; Hematocrit 43.2 % (35.3-44.9); Hemoglobin 13.8 g/dL (11.5-15.4); Immature Granulocytes % 0.5 % (0-4); Lymphocytes # 2.2 K/mcL (0.6-4.6); Lymphocytes % 22.9 %; Mean Corpuscular HGB Conc 31.9 g/dL (31.6-35.5); Mean Corpuscular Volume 87.8 fL (83.0-100.0); Mean Platelet Volume 9.3 fL (9.4-12.4); Monocytes # 0.6 K/mcL (0.0-1.3); Monocytes % 6.4 %; Neutrophils # 6.5 K/mcL (1.6-8.9); Platelet Count 302 K/mcL (140-400); Red Blood Count 4.92 M/mcL (3.82-4.97); Red Cell Distribution Width 14.4 % (11.5-14.5); Segmented Neutrophils % 66.9 %
[2017-12-03] MEDS: Nitroglycerin 0.4 MG TAB.SUBL SL PRN ×4 (08:53→23:58)
[2017-12-03 09:00] LABS: INR 1.1; Prothrombin Time 12.1 Seconds (9.4-12.1)
[2017-12-03 09:02] LABS: Activated Partial Thrombo Time 29.3 Seconds (26.0-36.0)
[2017-12-03 09:10] LABS: BUN/Creatinine Ratio 26 (6-26); Blood Urea Nitrogen 18 mg/dL (8-23); Calcium 9.4 mg/dL (8.6-10.3); Carbon Dioxide 21 mEq/L (23-29); Chloride 106 mEq/L (98-107); Glucose 132 mg/dL (70-105); Osmolality,Calculated 288 (280-300); Potassium 3.6 mEq/L (3.5-5.1); Sodium 137 mEq/L (136-145); eGFR For African Americans > 60 (> 60); eGFR For Non-African Americans > 60 (> 60)
[2017-12-03 09:11] LABS: Troponin I < 0.03 ng/mL (< 0.04)
--- NOTE | 2017-12-03 09:41 | Emergency Department Note ---
Disposition Clinical Impression: ACS (acute coronary syndrome) Disposition: Admitted As Inpatient Referrals: Elyssa Downing CNP [Primary Care Provider] - General Adult HPI - General Chief complaint: ED Chest Pain Stated complaint: CP Time Seen by Provider: 12/03/17 07:38 Source: patient Mode of arrival: ambulatory Limitations: no limitations - History of Present Illness Pain Scale: 5 - Related Data Home Medications Medication Instructions Recorded Confirmed Acetaminophen [Tylenol] 650 mg PO DAILY 08/17/16 08/17/16 Omeprazole 20 mg PO DAILY 08/17/16 08/17/16 metFORMIN [Glucophage] 500 mg PO DAILY 08/17/16 08/17/16 Previous Rx's Medication Instructions Recorded Aspirin Enteric Coated [Aspirin EC] 325 mg PO DAILY #21 tablet. 08/16/16 OxyCODONE Immed Rel [Roxicodone 5 5 - 10 mg PO Q6HR PRN #40 tablet 08/16/16 MG] Enoxaparin [Lovenox] 110 mg SQ Q12HR #20 syr 08/26/16 Allergies Allergy/AdvReac Type Severity Reaction Status Date / Time Penicillins [PCN] Allergy Mild Hives Verified 12/03/17 08:11 Constitutional: Denies: fever, chills, weakness, weight change Eyes: Denies: eye pain, eye discharge, vision change ENT ED: Denies: ear pain, throat pain, dental pain, hearing loss, epistaxis, congestion, dysphagia Cardiovascular: Reports: as per HPI, chest pain, palpitations. Denies: dyspnea on exertion, edema, syncope Respiratory: Reports: as per HPI, cough, sputum production (Clear). Denies: dyspnea, wheezes, hemoptysis, stridor Gastrointestinal: Reports: as per HPI, nausea. Denies: abdominal pain, vomiting , diarrhea, constipation, hematemesis, melena, hematochezia Genitourinary: Denies: dysuria, frequency, hematuria, discharge Musculoskeletal: Denies: back pain, neck pain, arthralgia, myalgia Integumentary: Denies: rash, abrasion, lesions Neurological: Denies: headache, weakness, numbness, paresthesias, confusion, abnormal gait, vertigo Psychiatric: Denies: anxiety, depression, suicidal thoughts, homicidal thoughts , auditory hallucinations, visual hallucinations Endocrine: Denies: fatigue Hematological/Lymphatic: Denies: easy bleeding, easy bruising Allergic/Immunologic: Denies: facial swelling, urticaria Past Medical History - Past Medical History Medical history: Reports: diabetes Surgical history: Reports: cholecystectomy, hysterectomy, knee replacement Psychiatric history: Reports: no psych history - Social History Smoking Status: Former smoker Smokeless Tobacco Status: No Alcohol use: Reports: occasionally Drug use: Reports: none Physical Exam - General Limitations: no limitations General appearance: alert, in no apparent distress Course - Reevaluation(s) Reevaluation #1: Attestation note I examined this patient and my medical decision-making was reviewed with the emergency medicine resident. I agree with the documented findings, disposition and treatment plan as described except to the extent set forth below. Patient seen with nurse practitioner Dion Dempsey, Please see a copy of his note for details of the H&P, ED evaluation, management and disposition. I have independently evaluated the patient and confirmed appropriate portions of the history and physical exam. Briefly: 72-year-old female history of hypertension hypercholesterolemia has had no recent stress test comes in with chest pain. EKG shows no acute ischemic changes is pain-free troponin negative patient be admitted for acute coronary syndrome. Provided 30 minutes critical care service for this patient. Admission disposition pending Time: 09:40 Vital Signs Temperature 98.3 F 12/03/17 07:45 Pulse Rate 81 12/03/17 07:45 Respiratory Rate 20 12/03/17 07:45 Blood Pressure 159/77 12/03/17 07:45 O2 Sat by Pulse Oximetry 96 12/03/17 07:45 Temperature 98.3 F 12/03/17 07:45 Pulse Rate 76 12/03/17 09:30 Respiratory Rate 20 12/03/17 09:30 Blood Pressure 155/77 12/03/17 09:30 O2 Sat by Pulse Oximetry 95 12/03/17 09:30 Oxygen Delivery Oxygen Delivery Room Air Medical Decision Making - Lab Data Result diagrams: 12/03/17 08:40 12/03/17 08:40 Lab Results 12/03/17 12/03/17 12/03/17 Range/Units 08:40 08:40 08:40 WBC 9.8 (4.3-11.1) K/mcL RBC 4.92 (3.82-4.97) M/mcL Hgb 13.8 (11.5-15.4) g/dL Hct 43.2 (35.3-44.9) % MCV 87.8 (83.0-100.0) fL MCH 28.0 (28.0-33.3) pg MCHC 31.9 (31.6-35.5) g/dL RDW 14.4 (11.5-14.5) % Plt Count 302 (140-400) K/mcL MPV 9.3 L (9.4-12.4) fL Immature Gran % 0.5 (0-4) % Seg Neutrophils % 66.9 % Lymphocytes % 22.9 % Monocytes % 6.4 % Eosinophils % 2.7 % Basophils % 0.6 % Neutrophils # 6.5 (1.6-8.9) K/mcL Lymphocytes # 2.2 (0.6-4.6) K/mcL Monocytes # 0.6 (0.0-1.3) K/mcL Eosinophils # 0.3 (0.0-0.6) K/mcL Basophils # 0.1 (0.0-0.2) K/mcL PT 12.1 (9.4-12.1) Seconds INR 1.1 APTT 29.3 (26.0-36.0) Seconds D-Dimer 318 (0-500) ng/mLFEU Sodium (136-145) mEq/L Potassium (3.5-5.1) mEq/L Chloride (98-107) mEq/L Carbon Dioxide (23-29) mEq/L BUN (8-23) mg/dL Creatinine (0.60-1.20) mg/dL Est GFR ( Amer) (> 60) Est GFR (Non-Af Amer) (> 60) BUN/Creatinine Ratio (6-26) Glucose (70-105) mg/dL Calculated Osmolality (280-300) Calcium (8.6-10.3) mg/dL Troponin I (< 0.04) ng/mL B-Natriuretic Peptide 56 (Less than 100) pg/mL 12/03/17 Range/Units 08:40 WBC (4.3-11.1) K/mcL RBC (3.82-4.97) M/mcL Hgb (11.5-15.4) g/dL Hct (35.3-44.9) % MCV (83.0-100.0) fL MCH (28.0-33.3) pg MCHC (31.6-35.5) g/dL RDW (11.5-14.5) % Plt Count (140-400) K/mcL MPV (9.4-12.4) fL Immature Gran % (0-4) % Seg Neutrophils % % Lymphocytes % % Monocytes % % Eosinophils % % Basophils % % Neutrophils # (1.6-8.9) K/mcL Lymphocytes # (0.6-4.6) K/mcL Monocytes # (0.0-1.3) K/mcL Eosinophils # (0.0-0.6) K/mcL Basophils # (0.0-0.2) K/mcL PT (9.4-12.1) Seconds INR APTT (26.0-36.0) Seconds D-Dimer (0-500) ng/mLFEU Sodium 137 (136-145) mEq/L Potassium 3.6 (3.5-5.1) mEq/L Chloride 106 (98-107) mEq/L Carbon Dioxide 21 L (23-29) mEq/L BUN 18 (8-23) mg/dL Creatinine 0.68 (0.60-1.20) mg/dL Est GFR ( Amer) > 60 (> 60) Est GFR (Non-Af Amer) > 60 (> 60) BUN/Creatinine Ratio 26 (6-26) Glucose 132 H (70-105) mg/dL Calculated Osmolality 288 (280-300) Calcium 9.4 (8.6-10.3) mg/dL Troponin I < 0.03 (< 0.04) ng/mL B-Natriuretic Peptide (Less than 100) pg/mL
[2017-12-03] MEDS ORDERED: Naloxone 0.4 MG/ML INJ IVP PRN (12:33)
--- NOTE | 2017-12-03 12:33 | Internal Med History&Physical ---
Date of Encounter: 12/03/17 Time of Encounter: 12:32 Internal Medicine - H&P: HPI Admitted From: Home Plans for Post Hospital Care: Home History of present illness: Ms. Johnson is a 72-year-old female with history of diabetes mellitus on oral hypoglycemic agent but last A1c 6.0, recently diagnosed hypertension and is started on atenolol by PCP presented to ER for evaluation of substernal chest pain intermittently for last 3 days. She has pain 7/10 aggravated by activity and eased off by rest, nonradiating, associated with nausea and palpitation, quality of chest pain more like pressure feeling. She never had cardiac workup but had heart catheter several years ago with normal finding. Patient had a strong family history for cardiac disease. Her sister in her 60s, dad had bypass surgery in his 60s and mother had bypass surgery in her 80s. In ER her vitals are stable initial troponin negative EKG with slight ST depression in V5 and V6 compared EKG on July 2016. ER physician called on- call hospitalist to admit with the diagnosis chest pain rule out ACS. Patient denies fever, chills, nausea, vomiting, abdominal pain, headache, dizziness, urinary or bowel complaint. She complained of cough with mild productive white sputum but denies hemoptysis. At present her chest pain to by 10 after taking full-strength aspirin and 3 doses of nitroglycerin in the ER. Past Med Surg Social Fam HX - Past Medical History Medical history: diabetes Psychiatric history: no psych history - Past Surgical History Surgical History: cholecystectomy, hysterectomy, knee replacement - Social History Smoking Status: Former smoker Smokeless Tobacco Status: No Alcohol use: occasionally Drug use: none - Additional Family History Additional family history: Strong cardiac history in parents and sibling Internal Medicine - H&P: Meds Acetaminophen [Tylenol] 650 mg PO DAILY 08/17/16 [History] metFORMIN [Glucophage] 500 mg PO DAILY 08/17/16 [History] Atenolol [Tenormin] 25 mg PO DAILY 12/03/17 [History] Cholecalciferol (Vitamin D3) [Vitamin D] 5,000 unit PO DAILY 12/03/17 [History] Omeprazole [PriLOSEC] 20 mg PO DAILY 12/03/17 [History] 3 Allergy/AdvReac Type Severity Reaction Status Date / Time Penicillins [PCN] Allergy Mild Hives Verified 12/03/17 08:11 All Systems PM: A 10-system review of systems was performed and is negative for pertinent findings except as documented above in the HPI. - Constitutional Vitals: Temp Pulse Resp BP Pulse Ox 97.5 F L 68 19 134/78 94 12/03/17 12:20 12/03/17 12:20 12/03/17 12:20 12/03/17 12:20 12/03/17 12:20 Exam: General appearance: No acute distress, A&O X 3, obese Head exam: Atraumatic Eye exam: EOMI, PERRLA ENT exam: Moist oral mucosa Neck nontender, supple Respiratory exam: Clear to auscultation bilaterally Cardiovascular exam: Regular rate and rhythm, no systolic murmur Abdominal exam: Soft, nontender, nondistended, positive bowel sounds Extremities exam: No calf tenderness, no pedal edema Present: Skin-no rash, warm, dry, intact Neurological exam: Alert, awake, oriented 3, CN II-XII intact, no focal deficits. No facial droop. Normal speech. Normal gait. Romberg sign negative Internal Med - H&P Results - Labs CBC & Chem 7: 12/03/17 08:40 12/03/17 08:40 - Assessment and plan (1) ACS (acute coronary syndrome) Current Visit: Yes Status: Acute Assessment and plan: Multiple risk factor age, hypertension, diabetes mellitus, remote a smoker for 40 years and quit 8 years ago, strong family history presented with typical chest pain angina equivalent symptoms. Troponin negative slight change in ST V5 V6 lead of EKG. Will restart therapeutic dose of Lovenox, aspirin, beta refugio, statin, oxygen when necessary, nitroglycerin when necessary, FLP, echocardiogram. Consulted community services manager. She need ischemic cardiac workup. (2) Hypertension Current Visit: Yes Status: Inactive Assessment and plan: Diagnoses recently by her PCP. Close monitoring. Medicine adjustment as per response. Qualifiers: Hypertension type: essential hypertension Qualified Code(s): I10 - Essential (primary) hypertension (3) Diabetes mellitus Current Visit: Yes Status: Acute Assessment and plan: Last A1c 6.0 as per patient. Metformin on hold. A started low scale sliding scale insulin, diabetic diet, Accu-Chek. 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 - Time Spent With Patient Total time spent is greater than 50% in coordination of care (as documented) at patient's floor/unit and/or counseling patient: 25 - 35 minutes
[2017-12-03] MEDS ORDERED: *HR* Dextrose 50 % in Water (Syg) 50 ML SYRINGE IVP PRN (12:47)
[2017-12-03] MEDS ORDERED: Dextrose Gel 15 GM/37.5 ML TUBE PO PRN ×2 (12:47)
[2017-12-03] MEDS ORDERED: D5% in Water 1,000 ML IVC PRN (12:47)
--- NOTE | 2017-12-03 15:06 | Electrocardiograph Report ---
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
[2017-12-03] MEDS: Insulin LISPRO 300 UNITS/3 ML VIAL SQ SCH (17:09)
[2017-12-03] MEDS: *HR* Enoxaparin 120 MG/0.8 ML SYRINGE SQ SCH (17:10)
[2017-12-04 00:54] LABS: Basophils # 0.1 K/mcL (0.0-0.2); Basophils % 0.6 %; Eosinophils # 0.3 K/mcL (0.0-0.6); Eosinophils % 2.9 %; Hematocrit 41.7 % (35.3-44.9); Hemoglobin 13.3 g/dL (11.5-15.4); Immature Granulocytes % 0.3 % (0-4); Lymphocytes # 4.1 K/mcL (0.6-4.6); Lymphocytes % 37.4 %; Mean Corpuscular HGB Conc 31.9 g/dL (31.6-35.5); Mean Corpuscular Hemoglobin 27.9 pg (28.0-33.3); Mean Corpuscular Volume 87.6 fL (83.0-100.0); Mean Platelet Volume 9.4 fL (9.4-12.4); Monocytes # 0.7 K/mcL (0.0-1.3); Monocytes % 6.7 %; Neutrophils # 5.8 K/mcL (1.6-8.9); Platelet Count 307 K/mcL (140-400); Red Blood Count 4.76 M/mcL (3.82-4.97); Red Cell Distribution Width 14.5 % (11.5-14.5); Segmented Neutrophils % 52.1 %
[2017-12-04 01:11] LABS: BUN/Creatinine Ratio 31 (6-26); Blood Urea Nitrogen 22 mg/dL (8-23); Calcium 9.5 mg/dL (8.6-10.3); Carbon Dioxide 23 mEq/L (23-29); Chloride 106 mEq/L (98-107); Chol/HDL Ratio 4.9 (0-4.9); Cholesterol 147 mg/dL (< 200); Glucose 117 mg/dL (70-105); HDL Cholesterol 30 mg/dL (40-59); LDL Cholesterol,Calculated 91 mg/dL (0-99); Osmolality,Calculated 286 (280-300); Potassium 3.7 mEq/L (3.5-5.1); Sodium 136 mEq/L (136-145); Triglycerides 129 mg/dL (< 150); eGFR For African Americans > 60 (> 60); eGFR For Non-African Americans > 60 (> 60)
[2017-12-04] MEDS: *HR* Enoxaparin 120 MG/0.8 ML SYRINGE SQ SCH ×2 (05:16→18:25)
[2017-12-04] MEDS: Insulin LISPRO 300 UNITS/3 ML VIAL SQ SCH ×3 (07:59→16:45)
[2017-12-04] MEDS: Aspirin 81 MG TAB.CHEW PO SCH (08:01)
[2017-12-04] MEDS: Acetaminophen 325 MG TABLET PO SCH (08:01)
[2017-12-04] MEDS: Cholecalciferol (D-3) 1,000 UNIT TABLET PO SCH (08:01)
--- NOTE | 2017-12-04 15:04 | Internal Med Progress Note ---
Date of Encounter: 12/04/17 Time of Encounter: 14:45 - Assessment and plan (1) ACS (acute coronary syndrome) Current Visit: Yes Status: Acute Assessment and plan: History suggestive of unstable angina. Echo was normal. EKG shows ST depression in V5 and 6. We will repeat EKG now. She will undergo Lexiscan Cardiolite stress test on Wednesday. We will continue aspirin and increase the dose of beta refugio and evidence of ongoing angina. (2) Diabetes mellitus Current Visit: Yes Status: Acute Assessment and plan: Last A1c 6.0 as per patient. Metformin on hold. A started low scale sliding scale insulin, diabetic diet, Accu-Chek. (3) Hypertension Current Visit: Yes Status: Inactive Assessment and plan: Adequately controlled with beta blockers at this time. Qualifiers: Hypertension type: essential hypertension Qualified Code(s): I10 - Essential (primary) hypertension (4) DVT prophylaxis Current Visit: Yes Status: Acute Assessment and plan: At present Lovenox therapeutic. - Time Spent With Patient Total time spent is greater than 50% in coordination of care (as documented) at patient's floor/unit and/or counseling patient: 25 - 35 minutes - Subjective Interval history: She reports 3 episodes of anginal chest pain over the last 24 hours. Last episode was overnight. Apparently she is at least 45 minutes to the closest Medical Center. She feels unsafe to be at home. - Constitutional Vitals: Temp Pulse Resp BP Pulse Ox 97.9 F 62 17 118/76 96 12/04/17 11:43 12/04/17 11:43 12/04/17 11:43 12/04/17 11:43 12/04/17 11:43 General appearance: Present: A&O X 3 Exam: Physical exam Gen: Comfortable, laying in bed, in no visible distress HEENT: Normocephalic, atraumatic. No conjunctival icterus. Moist oral mucosa. Neck: Supple Lungs: Clear to auscultation, no foreign sounds Heart: Normal S1-S2, no murmurs rubs or gallops Abdomen: Normoactive bowel sounds, no guarding rigidity or tenderness Extremities: No edema clubbing or cyanosis Neuro: Alert oriented 3, no focal deficits Skin: No skin lesions Internal Medicine: Result - Labs CBC & Chem 7: 12/04/17 00:39 12/04/17 00:39 Labs: Short CBC 04/21/18 Range/Units 00:39 WBC 11.1 (4.3-11.1) K/mcL Hgb 13.3 (11.5-15.4) g/dL Hct 41.7 (35.3-44.9) % Plt Count 307 (140-400) K/mcL Neutrophils # 5.8 (1.6-8.9) K/mcL BMP 12/04/17 00:39 Sodium 136 Potassium 3.7 Chloride 106 Carbon Dioxide 23 BUN 22 Creatinine 0.71 Glucose 117 H Calcium 9.5 Cardiac Enzymes 12/03/17 12/04/17 Range/Units 18:45 00:39 Troponin I < 0.03 < 0.03 (< 0.04) ng/mL - ABG Interpretation ABG results: PT/INR, D-dimer PT 12.1 Seconds (9.4-12.1) 12/03/17 08:40 D-Dimer 318 ng/mLFEU (0-500) 12/03/17 08:40 - Impressions Impressions Echocardiogram 12/03/17 12:33 Impressions: LVEF 60-65%. Normal LV chamber size, wall thickness and function. Mild left ventricular diastolic dysfunction. Normal right ventricular structure and function. No evidence of pulmonary hypertension. No significant valvular dysfunction. Left Ventricular Wall Motion: Rest Echo Findings All wall segments showed normal motion. Findings: Study Quality * Technically adequate exam. ECG Findings * Normal sinus rhythm. Left Ventricle * LVEF 60-65%. * Normal LV chamber size, wall thickness and function. * Mild left ventricular diastolic dysfunction. Right Ventricle * Normal right ventricular structure and function. Left Atrium * Mildly dilated left atrium. Right Atrium * Normal right atrial size. Aortic Valve * Aortic valve not well visualized. * Grossly, mildly sclerotic aortic valve leaflets. * No aortic regurgitation. * No aortic stenosis. Mitral Valve * Normal mitral valve structure and function. * No mitral stenosis. * No mitral regurgitation. Tricuspid Valve * Normal tricuspid valve structure and function. * Trace tricuspid regurgitation. * No evidence of pulmonary hypertension. Pulmonic Valve * Normal pulmonic valve structure and function. * No pulmonic regurgitation. Aorta * Normally sized aortic root. Pericardium * The pericardium appears normal. IVC * Normal IVC dimensions and inspiratory collapse. Pulmonary Artery * Normal visualized portions of the main pulmonary artery. Device lead * A device lead was visualized in the right atrium and right ventricle. Consult Discharge Plan - Plan Referrals: Elyssa Downing, BOGDAN [Primary Care Provider] -
[2017-12-05] MEDS: *HR* Enoxaparin 120 MG/0.8 ML SYRINGE SQ SCH ×2 (05:57→16:37)
[2017-12-05] MEDS: Insulin LISPRO 300 UNITS/3 ML VIAL SQ SCH ×3 (08:00→15:29)
[2017-12-05] MEDS: Cholecalciferol (D-3) 1,000 UNIT TABLET PO SCH (08:26)
[2017-12-05] MEDS: Acetaminophen 325 MG TABLET PO SCH (08:26)
[2017-12-05] MEDS: Aspirin 81 MG TAB.CHEW PO SCH (08:26)
--- NOTE | 2017-12-05 12:59 | Internal Med Progress Note ---
Date of Encounter: 12/05/17 Time of Encounter: 12:45 - Assessment and plan (1) ACS (acute coronary syndrome) Current Visit: Yes Status: Acute Assessment and plan: History suggestive of unstable angina. Echo was normal. EKG shows ST depression in V5 and 6. Follow-up EKG shows T-wave abnormalities in the inferior leads. She will undergo Lexiscan Cardiolite stress test on Wednesday. We will continue aspirin and beta refugio. (2) Diabetes mellitus Current Visit: Yes Status: Acute Assessment and plan: Last A1c 6.0 as per patient. Metformin on hold. A started low scale sliding scale insulin, diabetic diet, Accu-Chek. (3) Hypertension Current Visit: Yes Status: Inactive Assessment and plan: Adequately controlled with beta blockers at this time. Qualifiers: Hypertension type: essential hypertension Qualified Code(s): I10 - Essential (primary) hypertension (4) DVT prophylaxis Current Visit: Yes Status: Acute Assessment and plan: At present Lovenox therapeutic. - Time Spent With Patient Total time spent is greater than 50% in coordination of care (as documented) at patient's floor/unit and/or counseling patient: 25 - 35 minutes - Subjective Interval history: She reports an episode of substernal chest pressure this morning. - Constitutional Vitals: Temp Pulse Resp BP Pulse Ox 97.5 F L 72 14 112/71 94 12/05/17 10:51 12/05/17 10:51 12/05/17 10:51 12/05/17 10:51 12/05/17 10:51 General appearance: Present: A&O X 3 Exam: Physical exam Gen: Comfortable, laying in bed, in no visible distress HEENT: Normocephalic, atraumatic. No conjunctival icterus. Moist oral mucosa. Neck: Supple Lungs: Clear to auscultation, no foreign sounds Heart: Normal S1-S2, no murmurs rubs or gallops Abdomen: Normoactive bowel sounds, no guarding rigidity or tenderness Extremities: No edema clubbing or cyanosis Neuro: Alert oriented 3, no focal deficits Skin: No skin lesions. Varicose veins of legs. Internal Medicine: Result - Labs CBC & Chem 7: 12/04/17 00:39 12/04/17 00:39 - ABG Interpretation ABG results: PT/INR, D-dimer PT 12.1 Seconds (9.4-12.1) 12/03/17 08:40 D-Dimer 318 ng/mLFEU (0-500) 12/03/17 08:40 Consult Discharge Plan - Plan Referrals: Elyssa Downing CNP [Primary Care Provider] -
[2017-12-05] MEDS: Artificial Tears SOLN 15 ML BOTTLE BOTH EYES PRN ×2 (15:29→20:10)
[2017-12-06] MEDS ORDERED: Regadenoson 0.4 MG/5 ML SYRINGE IVP ONE (05:33)
[2017-12-06] MEDS: *HR* Enoxaparin 120 MG/0.8 ML SYRINGE SQ SCH ×2 (06:04→18:25)
[2017-12-06] MEDS: Artificial Tears SOLN 15 ML BOTTLE BOTH EYES PRN (06:04)
[2017-12-06] MEDS: Insulin LISPRO 300 UNITS/3 ML VIAL SQ SCH ×3 (09:06→16:10)
[2017-12-06] MEDS: Acetaminophen 325 MG TABLET PO SCH (09:53)
[2017-12-06] MEDS: Aspirin 81 MG TAB.CHEW PO SCH (09:53)
[2017-12-06] MEDS: Cholecalciferol (D-3) 1,000 UNIT TABLET PO SCH (09:53)
--- NOTE | 2017-12-06 21:45 | Internal Med Progress Note ---
Date of Encounter: 12/06/17 Time of Encounter: 10:07 - Assessment and plan (1) ACS (acute coronary syndrome) Current Visit: Yes Status: Acute Assessment and plan: History suggestive of unstable angina. ECHO WNL. EKG shows ST depression in V5 and 6. Follow-up EKG shows T-wave abnormalities in the inferior leads. Part 1 of Lexiscan Cardiolite stress test completed today; part 2 tomorrow. We will continue aspirin and beta refugio. (2) Diabetes mellitus Current Visit: Yes Status: Chronic Assessment and plan: Last A1C = 6.0 per patient. Metformin on hold. Continue low scale sliding scale insulin, diabetic diet, and AccuChecks. (3) Hypertension Current Visit: Yes Status: Inactive Assessment and plan: Adequately controlled with beta blockers at this time. Qualifiers: Hypertension type: essential hypertension Qualified Code(s): I10 - Essential (primary) hypertension (4) DVT prophylaxis Current Visit: Yes Status: Acute Assessment and plan: Continue weight-based lovenox SQ BID. - Time Spent With Patient Total time spent is greater than 50% in coordination of care (as documented) at patient's floor/unit and/or counseling patient: less than 15 minutes - Subjective Interval history: Patient had no acute events overnight. She states still a little "worn out" from stress test this AM. She is scheduled for part 2 tomorrow. She denies chest pain, SOB, fever, or chills. She has no new complaints. - Constitutional Vitals: Temp Pulse Resp BP Pulse Ox 97.4 F L 72 18 137/77 98 12/06/17 20:34 12/06/17 20:34 12/06/17 20:34 12/06/17 20:34 12/06/17 20:34 General appearance: Present: cooperative, A&O X 3, pleasant, no acute distress, obese, answers questions appropriately - Respiratory Respiratory exam: Present: CTAB. Absent: accessory muscle use, rales, rhonchi, wheezes Additional comments: Normal WOB - Cardiovascular Cardiovascular exam: Present: RRR, +S1, +S2. Absent: diastolic murmur, gallop, rubs, systolic murmur Additional comments: No BLE edema - GI/Abdominal GI/Abdominal exam: Present: normal bowel sounds, soft. Absent: distended, hepatomegaly, mass, splenomegaly, tenderness - Psychiatric Psychiatric exam: Present: normal affect, normal mood. Absent: agitated, anxious, depressed - Skin Skin exam: Present: dry, intact, warm. Absent: cyanosis, rash Internal Medicine: Result - Labs CBC & Chem 7: 12/04/17 00:39 12/04/17 00:39 - ABG Interpretation ABG results: PT/INR, D-dimer PT 12.1 Seconds (9.4-12.1) 12/03/17 08:40 D-Dimer 318 ng/mLFEU (0-500) 12/03/17 08:40 Consult Discharge Plan - Plan Referrals: Elyssa Downing, [facility] [Primary Care Provider] -
[2017-12-07] MEDS: *HR* Enoxaparin 120 MG/0.8 ML SYRINGE SQ SCH (05:34)
--- NOTE | 2017-12-07 05:34 | Electrocardiograph Report ---
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
--- NOTE | 2017-12-07 05:51 | Electrocardiograph Report ---
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
[2017-12-07] MEDS: Insulin LISPRO 300 UNITS/3 ML VIAL SQ SCH ×2 (09:24→11:34)
[2017-12-07] MEDS: Cholecalciferol (D-3) 1,000 UNIT TABLET PO SCH (09:24)
[2017-12-07] MEDS: Aspirin 81 MG TAB.CHEW PO SCH (09:25)
[2017-12-07] MEDS: Acetaminophen 325 MG TABLET PO SCH (09:26)
[2017-12-07 15:27] VITALS: BP 109/72
--- NOTE | 2017-12-07 17:04 | Discharge Summary ---
- NOTES TO OUTPATIENT PROVIDER Notes to Outpatient Provider: Follow up with PCP in 2-3 days after discharge. Orders not resulted at time of discharge: Pending orders 12/04/17 15:05 NM tyrell perf SPECT multi [NM] Routine Date of Encounter: 12/07/17 Time of Encounter: 14:27 - Discharge Diagnosis (1) ACS (acute coronary syndrome) Priority: Primary Status: Ruled-out (2) Diabetes mellitus Priority: Secondary Status: Chronic (3) Hypertension Priority: Secondary Status: Chronic Qualifiers: Hypertension type: essential hypertension Qualified Code(s): I10 - Essential (primary) hypertension (4) DVT prophylaxis Priority: Secondary Status: Acute Hospital course: Ms. Johnson is a 72 year old white female admitted for ACS ruleout. She was admitted for observation to general medical floor with telemetry. Toponins trended negative at 12 hours. Chest pain resolved after admission. Repeat EKG had ST depression in V5 and V6. Repeat ECHO showed LVEF 60-65%, normal LV size and function, normal RV structure and function, and no valvular dysfunction. She was taken for stress test. Pharmacologic stress ECG was negative for ischemia or infarct at the level of heart rate achieved. Today, patient denies any chest pain, chest discomfort, or SOB. She will follow up with PCP in 2-3 days after discharge. Patient has met maximum benefit of this hospitalization and will be discharged home in stable condition. Discharge discussed with: patient, family, nurse, other (Pharmacist) - Time Spent with Patient Total time spent providing and/or coordinating discharge services: Less than 30 minutes - Discharge Medications Home Medications: Acetaminophen [Tylenol] 650 mg PO DAILY 08/17/16 [History] metFORMIN [Glucophage] 500 mg PO DAILY 08/17/16 [History] Atenolol [Tenormin] 25 mg PO DAILY 12/03/17 [History] Cholecalciferol (Vitamin D3) [Vitamin D3] 5,000 unit PO DAILY 12/03/17 [History] Omeprazole [PriLOSEC] 20 mg PO DAILY 12/03/17 [History] Aspirin 81 mg PO DAILY tab.chew 12/07/17 [Rx] Allergies/Adverse Reactions: 3 Allergy/AdvReac Type Severity Reaction Status Date / Time Penicillins [PCN] Allergy Mild Hives Verified 12/03/17 08:11 Date of admission: 12/03/17 11:07 Primary care physician: Elyssa Downing CNP Consults: 12/03/17 12:33 Consult to Cardiac Rehabilitation-Phase1 [CONS] Routine Comment: Reason for Consult: AMI Call Completed: Yes Consult to Nurse Navigator [CONS] Routine Comment: Discharging clinician: Evgeny Marte Anticipated date of discharge: 12/07/17 - Constitutional Vitals: Temp Pulse Resp BP Pulse Ox 97.4 F L 65 17 109/72 97 12/07/17 15:26 12/07/17 15:26 12/07/17 15:26 12/07/17 15:26 12/07/17 15:26 General appearance: Present: cooperative, A&O X 3, pleasant, no acute distress, obese, answers questions appropriately - Respiratory Respiratory exam: Present: CTAB. Absent: accessory muscle use, rales, rhonchi, wheezes Additional comments: Normal WOB - Cardiovascular Cardiovascular exam: Present: RRR, +S1, +S2. Absent: diastolic murmur, gallop, rubs, systolic murmur Additional comments: No BLE edema - GI/Abdominal GI/Abdominal exam: Present: normal bowel sounds, soft. Absent: distended, hepatomegaly, mass, splenomegaly, tenderness - Psychiatric Psychiatric exam: Present: normal affect, normal mood. Absent: agitated, anxious, depressed - Skin Skin exam: Present: dry, intact, warm. Absent: cyanosis, rash - Patient Status Disposition: Home, Self-Care Condition: Good Functional capacity at discharge: independent ambulation Overall status at discharge: patient is back to baseline - Discharge Instructions Follow Up With: [facility] [Provider Group] (Office will call you with an appointment date and time if needed) Elyssa Downing CNP [Primary Care Provider] - (Please call in the morning and schedule a hospital follow up in 5-7 day. Thank you!) Forms: ED Satisfaction Letter Additional Instructions: Follow up with PCP in 2-3 days after discharge. - Diet and Activity Activity: resume usual activities as tolerated Diet: diabetic diet, low fat, low cholesterol, low salt diet, other (Cardiac Diet)
--- NOTE | 2017-12-09 16:53 | Electrocardiograph Report ---
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
== END 2017-12-07 17:55 | disposition home or self-care (01) ==
LOC: EMEROO 07:33 → 2ANU 07:33
PROVIDERS: ADMIT Family Medicine; ATTEND Family Medicine